=== PATIENT | male | born 1980 | race Hispanic/Latino ===

== ENCOUNTER 2022-02-19 20:43 | Emergency (ER) | payer OTHER ==
[~2022-02-19] VITALS: Ht 180.3 cm; Wt 104.3 kg
[2022-02-19] MEDS ORDERED: IBUPROFEN 600 MG TAB PO STA (21:15)
[2022-02-19] MEDS ORDERED: IBUPROFEN 600 MG TAB ONE (21:32)
== END 2022-02-19 23:27 | disposition home or self-care (01) ==
LOC: ER 21:13
DX: S93.692A Other sprain of left foot, initial encounter (principal); S93.492A Sprain of other ligament of left ankle, initial encounter; X50.1XXA Overexertion from prolonged static or awkward postures, initial encounter; Y99.0 Civilian activity done for income or pay; Z20.822 Contact with and (suspected) exposure to COVID-19
CPT/HCPCS: 73610; 73630; 93971; 99283; U0002